=== PATIENT | male | born 1975 | race Caucasian/White ===

== ENCOUNTER 2023-08-28 07:04 | Day surgery (SDC) | payer MEDICAID ==
[~2023-08-28] VITALS: Ht 165.1 cm; Wt 80.7 kg
[2023-08-28] MEDS ORDERED: MEPERIDINE 100 MG INJ. 100 MG/ML VIAL ONE (09:09)
[2023-08-28] MEDS ORDERED: MIDAZOLAM HCL 5 MG/5 ML VIAL ONE (09:09)
[2023-08-28] MEDS ORDERED: BENZOCAINE 20% 0.5mL UD SPRAY MM ONE (09:10)
[2023-08-28 09:58] VITALS: O2SAT 97
[2023-08-28 11:44] VITALS: BP_SYST 113; PULSE 80; RESP 16
== END 2023-08-28 10:35 | disposition home or self-care (01) ==
LOC: SDS 07:04 → SMU 07:11 → SDS 10:35
PROVIDERS: ATTEND Internal Medicine Gastroenterology
DX: R10.13 Epigastric pain (principal); K29.70 Gastritis, unspecified, without bleeding; K29.80 Duodenitis without bleeding; K21.9 Gastro-esophageal reflux disease without esophagitis; R14.0 Abdominal distension (gaseous); R14.3 Flatulence; E78.00 Pure hypercholesterolemia, unspecified
CPT/HCPCS: 43239; 87081; 36415; 99152; G0378; J2250; J2175